=== PATIENT | male | born 1990 | race Caucasian/White ===

== ENCOUNTER → 2016-06-28 | Outpatient (CLI) | payer OTHER ==
[~2016-06-28] MED LIST: CYCL10TA6 PO; OXYC1TAB3 PO; PRED20TA PO
--- NOTE | 2016-06-28 20:25 | DIAGNOSTIC IMAGING REPORT ---
LUMBAR SPINE 5 VIEWS HISTORY: Pain SPINE AND SACROILIAC JOINT 5 VIEW COMPARISON: None. FINDINGS: There is no fracture. No subluxation. Disc spaces are preserved. IMPRESSION: No fracture or subluxation within the lumbar spine. Electronically signed by: Christiano Martinez M.D. 06/28/2016 8:23 PM
== END | disposition home or self-care (01) ==
LOC: C.RAD 19:45
PROVIDERS: ATTEND Family Medicine
DX: M54.5 Low back pain (principal)

== ENCOUNTER 2016-08-04 18:42 | Emergency (ER) | payer OTHER ==
[~2016-08-04] VITALS: Ht 170.2 cm; Wt 74.8 kg
[2016-08-04 18:48] VITALS: TEMP 36.7; Ht 170.2 cm; Wt 74.8 kg
[2016-08-04] MEDS ORDERED: DEXAMETHASONE SOD INJ 10 MG/ML VIAL IM STA (19:09)
[2016-08-04] MEDS ORDERED: OXYC1TAB3 PO (19:13)
[2016-08-04] MEDS ORDERED: CYCL10TA6 PO (19:13)
--- NOTE | 2016-08-04 19:14 | EMERGENCY ROOM VISIT NOTE ---
ED Visit Note First contact with patient: 18:52 CHIEF COMPLAINT: Low back pain HISTORY OF PRESENT ILLNESS: This 26-year-old male patient presents to the emergency department via private vehicle complaining of pain in the low back which began earlier today. Patient states that he has a history of chronic low back pain of which she has seen pain management in the past. He recently had an x-ray performed here roughly 1 month ago which was essentially unremarkable. He states that he followed with pain management and [place] but does not have any current scripts. 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 The pain was gradual in onset, is now constant and worse with movement. The patient notes the pain as pinching and a 7/10. The patient has taken nothing without relief of the pain. The patient denies any loss of control of their bowel or bladder functions. There has been no leg numbness or weakness, and no change in sensation. No nausea or vomiting or abdominal pain. No chest pain or shortness of breath. The patient has had prior back injuries, and has been seen here before for low back pain. Patient states this is the same low back pain he has had in the past it is just worse today. He denies any urinary symptoms, history of kidney stones, leg weakness, incontinence, numbness or tingling in the genital region. No dysuria or increased urinary frequency. REVIEW OF SYSTEMS: A review of systems was performed with positives and pertinent negatives listed in the history of present illness. All other systems were reviewed and are negative. ALLERGIES: Ibuprofen MEDICATIONS: As noted below PMH: As noted below SOCIAL HISTORY: Patient lives at home with and child. He is currently employed. PHYSICAL EXAM: VITALS: Vitals are noted on the nurse's note and reviewed by myself. Vital signs stable. GENERAL: 26-year-old male, in no acute distress, nondiaphoretic, well-developed well-nourished. SKIN: The skin was without rashes, erythema, edema, or bruising. Capillary refill less than 2 seconds. NECK: Supple without nuchal rigidity. No cervical spine tenderness. No paraspinous muscle tenderness. HEART: Regular rate and rhythm without murmurs gallops or rubs. LUNGS: Clear to auscultation bilaterally without wheezes, rales or rhonchi. ABDOMEN: Positive bowel sounds x 4. Normal tympanic percussion. Soft, nontender, without masses or organomegaly. Yates sign negative. MUSCULOSKELETAL: No muscle atrophy, erythema, or edema noted of the back. There is minimal tenderness over the lumbar spinous processes, with the majority of the reproducible tenderness being in the right paraspinous musculature and right gluteus muscle. There is positive tenderness over the paraspinous muscles on the inferior right lumbar region. There is minimal tenderness over the thoracic spine and paraspinous muscles. There are right lumbar paraspinous musculature muscle spasms present. Negative straight leg raise test. NEURO: Patient was alert and oriented to person place and time. Normal sensation to light and sharp touch. Deep tendon reflexes 2+ in the lower extremities. Dorsalis pedis pulse 2+ bilaterally. Strength 5/5 and equal in the bilateral lower extremities. No neurologic deficits. EMERGENCY DEPARTMENT COURSE: Patient was seen and evaluated as above. After obtaining a thorough history and physical examination it is apparent the patient is experiencing acute exacerbation of his chronic low back pain. There were no neurologic deficits or evidence of abdominal etiology. Patient verbalized this is the same back pain he has had in the past it has just flared up and now has a pinching sensation. I offered him imaging however he notes that he had a recent x-ray performed here in June. I did review these no acute abnormality. He was given 10 mg of Decadron for any potential inflammation in the right lumbar region causing the radicular symptoms into the right leg. He will be given a short-term prescription for OxyIR as well as Flexeril. He was given an OxyIR home pack as he notes his pharmacy is closed. He was checked in the [place] drug monitoring system and no current prescription or reflector identified. He was given the number for 2 women specialist and instructed to follow-up by calling his insurance company to identify which one would participate. He seemed happy with plan of care, was educated upon worrisome symptoms which to return and was discharged home in good condition. In evaluation treatment this patient following differential diagnoses were entertained: Acute exacerbation of chronic low back pain, lumbar radiculopathy, cauda equina syndrome, acute abdominal etiologies, kidney stone, among others. Current/Historical Medications Scheduled Cyclobenzaprine Hcl (Flexeril), 10 MG PO TID Scheduled PRN Oxycodone Ir (Roxicodone Ir), 1-2 TAB PO Q4H PRN for Pain Allergies Coded Allergies: Ibuprofen (Verified Adverse Reaction, Severe, GI SYMPTOMS, 04/30/16) Ketorolac Tromethamine (Verified Adverse Reaction, Severe, GI SYMPTOMS, ) Tramadol (Verified Adverse Reaction, Severe, GI SYMPTOMS, 04/30/16) Vital Signs Date Time Temp Pulse Resp B/P Pulse Ox O2 Delivery O2 Flow Rate FiO2 08/04/16 19:41 88 18 135/54 97 08/04/16 18:48 36.7 117 18 124/83 100 Room Air Medications Administered Medications (Trade) Dose Ordered Sig/Mona Route Start Time Stop Time Status Last Admin Dose Admin Dexamethasone Sodium Phosphate (Decadron Inj) 10 mg NOW STAT IM 08/04/16 19:09 08/04/16 19:11 DC 08/04/16 19:19 10 MG Oxycodone HCl (Roxicodone Immediate Rel 5MG Home Pack) 1 homepack UD STAT PO 08/04/16 19:29 08/04/16 19:30 DC 08/04/16 19:39 1 HOMEPACK Departure Information Impression Primary Impression: Acute exacerbation of chronic low back pain Dispostion Home / Self-Care Condition GOOD Prescriptions Oxycodone Ir (Roxicodone Ir) 5 Mg Tab 1-2 TAB PO Q4H Y for Pain, #15 TAB For Initial Treatment Prov: Thony Berkowitz PA-C 08/04/16 Cyclobenzaprine Hcl (FLEXERIL) 10 Mg Tab 10 MG PO TID for 5 Days, #15 TAB Prov: Thony Berkowitz PA-C 08/04/16 Referrals No Doctor, Assigned (PCP) Radu Felipe D.O. Sefter, John C., DO Patient Instructions My [facility] Additional Instructions You have been treated in the Emergency Department for Back Pain. You have been prescribed Oxy IR to be used for pain control. This is a narcotic medication. You cannot drive or consume alcohol while on this medicine. This medicine should only be used for pain that cannot be controlled with over-the- counter pain medicines. Please consider using a stool softener with these. You have been prescribed Flexeril (cyclobenzaprine) 1 tabs orally, three times per day. Do NOT exceed 30 mg (6 tabs) per day. Take your first dose at bedtime as it can make you drowsy. Always take all medications as prescribed. For pain control, you can use the following ejnp-tei-[id number] medicines (if >12 yo): - Regular strength (325mg/tab) Tylenol (acetaminophen) 2 tabs every 4-6 hours as needed. Do not exceed 12 tablets in a 24 hour period. Avoid taking more than 4 grams (4000 mg) of Tylenol per day. This includes any other sources of acetaminophen you may take on a regular basis. If this is an acute injury, ice can be applied to the area of pain for the first 3 days to help decrease pain and inflammation. After the first 3 days, a heating pad can be used over the area for continued soothing relief. You should schedule a follow-up appointment in 2-3 days with your Primary Care Provider for further evaluation and treatment of your back pain. I have listed the number for her to orthopedic women specialist. Please call your insurance to see who participates in the area. Return to the Emergency Department if your current symptoms worsen despite treatment course outlined above, or if you develop any of the following symptoms : intractable pain despite aforementioned treatment course, loss of control of your bowel or bladder, numbness or tingling in your groin, or development of a fever. Please return to the emergency department with any new/concerning symptoms.
[2016-08-04] MEDS ORDERED: OXYCODONE IR HOME PACK PO STA (19:29)
[2016-08-04 19:41] VITALS: BP 135/54; PULSE 88; O2SAT 97
== END 2016-08-04 19:41 | disposition home or self-care (01) ==
LOC: C.EDB 18:43 → C.EDD 19:41
DX: M54.5 Low back pain (principal); G89.29 Other chronic pain

== ENCOUNTER 2016-08-09 17:53 | Emergency (ER) | payer OTHER ==
[~2016-08-09] VITALS: Ht 170.2 cm; Wt 74.0 kg
[~2016-08-09 17:53] MED LIST changes: -PRED20TA PO
[2016-08-09 17:54] VITALS: TEMP 36.6; Ht 170.2 cm; Wt 74.0 kg
[2016-08-09] MEDS ORDERED: PRED20TA PO (18:51)
[2016-08-09] MEDS ORDERED: DEXAMETHASONE SOD INJ 10 MG/ML VIAL ONE (18:53)
--- NOTE | 2016-08-09 18:53 | EMERGENCY ROOM VISIT NOTE ---
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 The patient states that he has had chronic back pain for several years. He previously saw pain management, but states that he has insurance issues and is not able to see him anymore. The patient was seen here 5 days ago for the same complaint and was given a prescription for oxycodone and Flexeril. He states he did make an appointment with a primary care provider and has this appointment 2 days from now. He rates his overall discomfort a 7/10. He denies any new symptoms. He denies any new injuries. The patient denies any loss of control of their bowel or bladder functions. There has been no leg numbness or weakness, and no change in sensation. No nausea or vomiting or abdominal pain. No chest pain or shortness of breath. No dysuria or increased urinary frequency. REVIEW OF SYSTEMS: A review of systems was performed with positives and pertinent negatives listed in the history of present illness. All other systems were reviewed and are negative. ALLERGIES: Ibuprofen, Toradol, tramadol MEDICATIONS: No chronic medications PMH: Chronic back pain SOCIAL HISTORY: Patient lives locally with family. PHYSICAL EXAM: VITALS: Vitals are noted on the nurse's note and reviewed by myself. Vital signs stable. GENERAL: This is a 26-year-old male, in no acute distress, nondiaphoretic, well- developed well-nourished. SKIN: The skin was without rashes, erythema, edema, or bruising. Capillary refill less than 2 seconds. NECK: Supple without nuchal rigidity. No cervical spine tenderness. No paraspinous muscle tenderness. HEART: Regular rate and rhythm without murmurs gallops or rubs. LUNGS: Clear to auscultation bilaterally without wheezes, rales or rhonchi. ABDOMEN: Positive bowel sounds x 4. Normal tympanic percussion. Soft, nontender, without masses or organomegaly. Yates sign negative. MUSCULOSKELETAL: No muscle atrophy, erythema, or edema noted of the back. There is no tenderness over the lumbar spinous processes. There is tenderness over the right lumbar paraspinous muscles. There is no tenderness over the thoracic spine or paraspinous muscles. There are no muscle spasms present. Negative straight leg raise test. NEURO: Patient was alert and oriented to person place and time. Normal sensation to light and sharp touch. Deep tendon reflexes 2+ in the lower extremities. Dorsalis pedis pulse 2+ bilaterally. Strength 5/5 and equal in the bilateral lower extremities. EMERGENCY DEPARTMENT COURSE: The patient was evaluated as above. The [place] prescription drug monitoring program was reviewed. The patient had been receiving regular prescriptions from pain management provider's until approximately 3 months ago. He did receive a prescription from an ER provider 5 days ago as we discussed. The patient does have an appointment with a primary care provider in 2 days. I agree to give the patient a home pack of OxyIR, but explained to him that I would not be providing him any further pain medication and he will not be receiving further narcotic prescription for his back pain from this emergency department. He was given a prescription for prednisone. He verbalized understanding of my assessment and treatment plan was discharged home in good condition. DIAGNOSIS: Chronic low back pain Current/Historical Medications Scheduled Prednisone (Prednisone), 0 PO DAILY Allergies Coded Allergies: Ibuprofen (Verified Adverse Reaction, Severe, GI SYMPTOMS, 08/09/16) Ketorolac Tromethamine (Verified Adverse Reaction, Severe, GI SYMPTOMS, ) Tramadol (Verified Adverse Reaction, Severe, GI SYMPTOMS, 08/09/16) Vital Signs Date Time Temp Pulse Resp B/P Pulse Ox O2 Delivery O2 Flow Rate FiO2 08/09/16 19:02 67 20 122/67 98 Room Air 08/09/16 17:54 36.6 125 18 129/73 99 Room Air Medications Administered Medications (Trade) Dose Ordered Sig/Mona Route Start Time Stop Time Status Last Admin Dose Admin Oxycodone HCl (Roxicodone Immediate Rel 5MG Home Pack) 1 homepack UD ONCE PO 08/09/16 19:00 08/09/16 19:01 DC 08/09/16 18:57 1 HOMEPACK Dexamethasone Sodium Phosphate (Decadron Inj) 10 mg STK-MED ONCE .ROUTE 08/09/16 18:53 08/09/16 18:55 DC 08/09/16 18:57 10 MG Departure Information Impression Primary Impression: Chronic low back pain Dispostion Home / Self-Care Condition GOOD Prescriptions Prednisone (Prednisone) 20 Mg Tab 0 PO DAILY, #18 TAB 3 DAILY FOR 3 DAYS, THEN 2 DAILY FOR 3 DAYS, THEN 1 DAILY FOR 3 DAYS. Prov: Chanel Zaman .PUMA 08/09/16 Referrals No Doctor, Assigned (PCP) Patient Instructions My [facility] Additional Instructions You have been treated in the Emergency Department for Back Pain. You have been prescribed OxyIR to be used for pain control. This is a narcotic medication. You cannot drive or consume alcohol while on this medicine. This medicine should only be used for pain that cannot be controlled with over-the- counter pain medicines. You have been prescribed Prednisone. This is a steroid which will help decrease your inflammation. Take this medicine as prescribed. It is best to take steroids early in the morning as PM dosing can affect your sleeping patterns. For pain control, you can use the following ilkb-jzw-dxyexaf medicines (if >12 yo): - Regular strength (325mg/tab) Tylenol (acetaminophen) 2 tabs every 4-6 hours as needed. Do not exceed 12 tablets in a 24 hour period. Avoid taking more than 4 grams (4000 mg) of Tylenol per day. This includes any other sources of acetaminophen you may take on a regular basis. - Regular strength (200 mg/tab) Advil (ibuprofen) 1-2 tabs every 4-6 hours as needed. Do not exceed a dose of 3200 mg per day. If this is an acute injury, ice can be applied to the area of pain for the first 3 days to help decrease pain and inflammation. After the first 3 days, a heating pad can be used over the area for continued soothing relief. Follow-up with your primary care provider as scheduled. Return to the Emergency Department if your current symptoms worsen despite treatment course outlined above, or if you develop any of the following symptoms : intractable pain despite aforementioned treatment course, loss of control of your bowel or bladder, numbness or tingling in your groin, or development of a fever. Problem Qualifiers Primary Impression: Chronic low back pain Back pain laterality: right Sciatica presence: with sciatica Sciatica laterality: sciatica of right side Qualified Codes: M54.41 - Lumbago with sciatica, right side; G89.29 - Other chronic pain
[2016-08-09] MEDS ORDERED: DEXAMETHASONE SOD INJ 4 MG/ML VIAL IM ONE (19:00)
[2016-08-09] MEDS ORDERED: OXYCODONE IR HOME PACK PO ONE (19:00)
[2016-08-09 19:02] VITALS: BP 122/67; PULSE 67; O2SAT 98
== END 2016-08-09 19:04 | disposition home or self-care (01) ==
LOC: C.EDB 17:53 → C.EDD 19:04
DX: M54.41 Lumbago with sciatica, right side (principal); G89.29 Other chronic pain

== ENCOUNTER 2017-04-18 08:34 | Emergency (ER) | payer OTHER ==
[~2017-04-18] VITALS: Ht 167.6 cm; Wt 71.8 kg
[2017-04-18 08:39] VITALS: TEMP 37; Ht 167.6 cm; Wt 71.8 kg
--- NOTE | 2017-04-18 09:28 | DIAGNOSTIC IMAGING REPORT ---
CHEST ONE VIEW PORTABLE CLINICAL HISTORY: cough dyspnea COMPARISON STUDY: No previous studies for comparison. FINDINGS: The bones soft tissues and hemidiaphragms are normal. The cardiomediastinal silhouette is normal. The lungs are clear. The pulmonary vasculature is normal. IMPRESSION: Negative chest. The above report was generated using voice recognition software. It may contain grammatical, syntax or spelling errors. Electronically signed by: Christiano Martinez M.D. 04/18/2017 9:27 AM Dictated Date/Time: 04/18/2017 9:21 AM
[2017-04-18] MEDS ORDERED: OXYC20TA32 PO (09:29)
[2017-04-18 09:32] LABS: BASO % 0.5 %; BASO ABS # 0.03 K/uL (0-0.2); COMPLETE YES; EOS % 4.9 %; HEMATOCRIT 44.3 % (42-52); IG% 0.2 %; LYMPH % 22.7 %; MEAN CELL VOLUME 88.6 fL (80-100); MEAN CORPUSCULAR HEMOGLOBIN 30.6 pg (25-34); MEAN CORPUSCULAR HGB CONC 34.5 g/dl (32-36); MEAN PLATELET VOLUME 9.5 fL (7.4-10.4); MONO % 12.3 %; NEUT % 59.4 %; PLATELET COUNT 202 K/uL (130-400); WHITE BLOOD COUNT 6.17 K/uL (4.8-10.8)
[2017-04-18 09:42] LABS: POINT OF CARE TROPONIN I < 0.030 ng/ml (0-0.045)
[2017-04-18 09:43] LABS: PROTHROMBIN TIME (PATIENT) 10.4 SECONDS (9.0-12.0)
[2017-04-18] MEDS ORDERED: BENZONATATE 100MG CAP PO STA (09:44)
[2017-04-18 09:54] LABS: BLOOD UREA NITROGEN 11 mg/dl (7-18); BUN/CREATININE RATIO 10.7 (10-20); CALCIUM 9.3 mg/dl (8.5-10.1); CARBON DIOXIDE 29 mmol/L (21-32); CHLORIDE 104 mmol/L (98-107); CREATININE 1.04 mg/dl (0.60-1.40); GLUCOSE 91 mg/dl (70-99); MAGNESIUM 2.2 mg/dl (1.8-2.4); POTASSIUM 3.7 mmol/L (3.5-5.1); SODIUM 139 mmol/L (136-145)
[2017-04-18 10:05] LABS: ALKALINE PHOSPHATASE 61 U/L (45-117); ALT/SGPT 21 U/L (12-78); AST/SGOT 12 U/L (15-37); CKMB/CK RATIO 0.8 (0-3.0); THYROID STIMULATING HORMONE 0.215 uIu/ml (0.300-4.500)
[2017-04-18 10:28] LABS: LYME DISEASE AB IGG NEG (NEG); LYME DISEASE AB IGM NEG (NEG)
--- NOTE | 2017-04-18 10:34 | EMERGENCY ROOM VISIT NOTE ---
History First contact with patient: 08:49 Chief Complaint: COUGH Stated Complaint: DRY COUGH, LOWER BACK PAIN Nursing Triage Summary: Pt reports "allergies acting up for awhile." Cough for a couple weeks, non prod. Lower back pain when coughing. History of Present Illness The patient is a 27 year old male who presents to the Emergency Room via private vehicle with complaints of "dry cough, low back pain". The patient states that he has had a dry cough for many weeks now, he states that he also has right lower back pain. He states that when he coughs it makes pain radiating from his low back and was hit. 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 He follows with pain management for this. He states that he also smokes. He denies any fevers, chills, abdominal pain. He has minimal chest pain from his cough. Review of Systems A complete 10-point Review of Systems was discussed with the patient, with pertinent positives and negatives listed in the History of Present Illness. All remaining Review of Systems questions can be considered negative unless otherwise specified. Past Medical/Surgical History Medical Problems: (1) Chronic radicular lumbar pain (2) Nicotine Dependence, Cigarettes, Uncomplicated (3) Tobacco Use Disorder Family History No significant family history Social History Smoking Status: Current Some Day Smoker Alcohol Use: none Drug Use: none Marital Status: in relationship Housing Status: lives with significant other Occupation Status: unemployed Current/Historical Medications Scheduled PRN Oxycodone Hcl (Oxycodone Hcl), 20 MG PO QID PRN for Pain Physical Exam Vital Signs Date Time Temp Pulse Resp B/P (MAP) Pulse Ox O2 Delivery O2 Flow Rate FiO2 04/18/17 11:06 98 20 156/94 97 04/18/17 08:39 37.0 103 20 119/82 97 Room Air Physical Exam VITAL SIGNS - Vital signs and nursing notes were reviewed. Stable. GENERAL -27-year-old male appearing his stated age who is in no acute distress. Communicates well with provider and answers questions appropriately. SKIN - Without rashes. No petechial rashes. HEAD - NC/AT. EYES - Sclera anicteric. EARS - No deformities of external structures noted on gross examination bilaterally. No pain elicited with palpation of the tragus bilaterally. External auditory canals without discharge or otorrhea. Tympanic membranes pearly gleason without retraction or bulging. No fluid or purulent material visualized behind the TM. Handle of malleus, umbo, cone of light, pars tensa/ flaccid all easily visualized. NOSE - Midline and without cyanosis. No epistaxis or purulent drainage noted. No hyphema. MOUTH/OROPHARYNX - Without perioral cyanosis. Buccal mucosa pink and moist and without leukoplakia. Tongue midline with equal elevation of palate bilaterally. No tonsillar hypertrophy, erythema, or exudates noted. Fair dentition noted. NECK - Neck with FROM. LUNGS - Chest wall symmetric without accessory muscle use, intercostals retractions, or central cyanosis. Normal vesicular breath sounds CTA B/L. No wheezes, rales, or rhonchi appreciated. CARDIAC - RRR with S1/S2. No murmur, rubs, or gallops appreciated. MUSCULOSKELETAL: There is tenderness to palpation overlying the right paraspinous musculature of the right lumbar spine. EXTREMITIES - No clubbing or peripheral cyanosis. No pretibial edema present. +5 /5 strength noted in UE/LE bilaterally. NEUROLOGIC - Cranial nerves II through XII grossly intact. Sensory intact to light touch throughout. PSYCH - A&O, and cooperates fully with examiner. Pt is very pleasant and interacts well with examiner. Medical Decision & Procedures ER Provider Diagnostic Interpretation: CHEST ONE VIEW PORTABLE CLINICAL HISTORY: cough dyspnea COMPARISON STUDY: No previous studies for comparison. FINDINGS: The bones soft tissues and hemidiaphragms are normal. The cardiomediastinal silhouette is normal. The lungs are clear. The pulmonary vasculature is normal. IMPRESSION: Negative chest. The above report was generated using voice recognition software. It may contain grammatical, syntax or spelling errors. Electronically signed by: Christiano Martinez M.D. 04/18/2017 9:27 AM Dictated Date/Time: 04/18/2017 9:21 AM Laboratory Results 04/18/17 08:55 Red Blood Count 5.00, Mean Corpuscular Volume 88.6, Mean Corpuscular Hemoglobin 30.6, Mean Corpuscular Hemoglobin Concent 34.5, Mean Platelet Volume 9.5, Neutrophils (%) (Auto) 59.4, Lymphocytes (%) (Auto) 22.7, Monocytes (%) (Auto) 12.3, Eosinophils (%) (Auto) 4.9, Basophils (%) (Auto) 0.5, Neutrophils # (Auto ) 3.67, Lymphocytes # (Auto) 1.40, Monocytes # (Auto) 0.76, Eosinophils # (Auto ) 0.30, Basophils # (Auto) 0.03 04/18/17 08:55 Test 04/18/17 08:55 04/18/17 09:24 White Blood Count 6.17 K/uL (4.8-10.8) Red Blood Count 5.00 M/uL (4.7-6.1) Hemoglobin 15.3 g/dL (14.0-18.0) Hematocrit 44.3 % (42-52) Mean Corpuscular Volume 88.6 fL (80-100) Mean Corpuscular Hemoglobin 30.6 pg (25-34) Mean Corpuscular Hemoglobin Concent 34.5 g/dl (32-36) Platelet Count 202 K/uL (130-400) Mean Platelet Volume 9.5 fL (7.4-10.4) Neutrophils (%) (Auto) 59.4 % Lymphocytes (%) (Auto) 22.7 % Monocytes (%) (Auto) 12.3 % Eosinophils (%) (Auto) 4.9 % Basophils (%) (Auto) 0.5 % Neutrophils # (Auto) 3.67 K/uL (1.4-6.5) Lymphocytes # (Auto) 1.40 K/uL (1.2-3.4) Monocytes # (Auto) 0.76 K/uL (0.11-0.59) Eosinophils # (Auto) 0.30 K/uL (0-0.5) Basophils # (Auto) 0.03 K/uL (0-0.2) RDW Standard Deviation 42.5 fL (36.4-46.3) RDW Coefficient of Variation 13.1 % (11.5-14.5) Immature Granulocyte % (Auto) 0.2 % Immature Granulocyte # (Auto) 0.01 K/uL (0.00-0.02) Prothrombin Time 10.4 SECONDS (9.0-12.0) Prothromb Time International Ratio 1.0 (0.9-1.1) Activated Partial Thromboplast Time 26.9 SECONDS (21.0-31.0) Partial Thromboplastin Ratio 1.0 Anion Gap 6.0 mmol/L (3-11) Est Creatinine Clear Calc Drug Dose 95.4 ml/min Estimated GFR () 112.7 Estimated GFR (Non- 97.3 BUN/Creatinine Ratio 10.7 (10-20) Calcium Level 9.3 mg/dl (8.5-10.1) Magnesium Level 2.2 mg/dl (1.8-2.4) Total Bilirubin 0.3 mg/dl (0.2-1) Aspartate Amino Transf (AST/SGOT) 12 U/L (15-37) Alanine Aminotransferase (ALT/SGPT) 21 U/L (12-78) Alkaline Phosphatase 61 U/L (45-117) Total Creatine Kinase 104 U/L (39-308) Creatine Kinase MB 0.8 ng/ml (0.5-3.6) Creatine Kinase MB Ratio 0.8 (0-3.0) Troponin I < 0.015 ng/ml (0-0.045) Total Protein 7.9 gm/dl (6.4-8.2) Albumin 4.0 gm/dl (3.4-5.0) Globulin 3.9 gm/dl (2.5-4.0) Albumin/Globulin Ratio 1.0 (0.9-2) Thyroid Stimulating Hormone (TSH) 0.215 uIu/ml (0.300-4.500) Lyme Disease IgG Antibody NEG (NEG) Lyme Disease IgM Antibody NEG (NEG) Bedside D-Dimer 128 ng/mlFEU (0-450) Bedside Troponin I < 0.030 ng/ml (0-0.045) Medications Administered Medications (Trade) Dose Ordered Sig/Mona Route Start Time Stop Time Status Last Admin Dose Admin Benzonatate (Tessalon Perles Cap) 100 mg NOW STAT PO 04/18/17 09:44 04/18/17 09:45 DC 04/18/17 10:18 100 MG Albuterol (Ventolin Hfa Inhaler) 1 puffs NOW STAT INH 04/18/17 10:35 04/18/17 10:36 DC 04/18/17 10:56 1 PUFFS Hydrocodone Bit/ Homatropine Methylb (Hycodan Elix Homepack 5/1.5MG/ 5ML) 1 homepack UD STAT PO 04/18/17 10:35 04/18/17 10:36 DC 04/18/17 10:56 1 [facility] Medical Decision Patient was seen and evaluated as above. After obtaining a thorough history and physical examination IV access was initiated, and blood work was performed. Patient presents to us today started tachycardic, and with what appears to be chest pain with cough, as well as sinus congestion and back pain. Back pain is reproducible with palpation of the right inferior paraspinous musculature of the lumbar spine. He does appear to be experiencing essentially what is likely a viral bronchitis Seasonal allergies. He is nontoxic. The CBC is negative for acute process. Coags normal. D-dimer negative. LFTs are not elevated. Troponin negative. TSH is low at 0.215. Chest x-ray negative results as above. At this time he appears stable for outpatient management. Normal sinus rhythm with sinus arrhythmia. No concerning ST segment elevation myocardial infarction. I suspect that the etiology of this patient's dry cough is not emergent. Is likely viral in nature. He also smokes. He'll be given an inhaler to help bronchodilator, as well as I could and cough syrup as a home pack. No scripts as he is in a pain management contract. At this time he appears stable for outpatient management. He is to follow-up with his family doctor by calling the back of his insurance card to schedule follow-up. He was educated upon management, educated upon worrisome symptoms which to return, had questions prior to discharge, and was discharged home in good condition. Impression Primary Impression: Cough Departure Information Dispostion Home / Self-Care Condition GOOD Referrals No Doctor, Assigned (PCP) Patient Instructions My [facility] Additional Instructions You were seen in the emergency department for a cough. Your blood work and chest x-ray and EKG have ruled out any emergent causes of your symptoms. I recommend the albuterol inhaler. 1-2 puffs every 6 hours as needed for cough. The cough syrup, take as directed. Do not drive while ingesting this. Please follow with family doctor. Please return with any new/concerning symptoms.
[2017-04-18] MEDS ORDERED: ALBUTEROL HFA 8 GM INHALER INH STA (10:35)
[2017-04-18] MEDS ORDERED: HYCODAN 60ML BOTTLE HOMEPACK PO STA (10:35)
[2017-04-18 11:06] VITALS: BP 156/94; PULSE 98; O2SAT 97
== END 2017-04-18 11:08 | disposition home or self-care (01) ==
LOC: C.EDB 08:35 → C.EDA 11:08
DX: R05 Cough (principal); R07.9 Chest pain, unspecified; G89.29 Other chronic pain; M54.5 Low back pain; F17.200 Nicotine dependence, unspecified, uncomplicated